=== PATIENT | male | born 1995 | race Two or more races ===

== ENCOUNTER 2017-10-21 05:45 | Emergency (ER) | payer OTHER ==
[~2017-10-21] VITALS: Ht 170.2 cm; Wt 66.7 kg
[2017-10-21] MEDS ORDERED: CELECOXIB100 MG PO (08:15)
[2017-10-21] MEDS ORDERED: LORATADINE10 MG PO (08:15)
[2017-10-21] MEDS ORDERED: AMOX-CLAV 875-1 EACH PO (08:15)
== END 2017-10-21 08:51 | disposition home or self-care (01) ==
LOC: ER 05:45
DX: S02.2XXA Fracture of nasal bones, initial encounter for closed fracture (principal); S90.01XA Contusion of right ankle, initial encounter; S10.83XA Contusion of other specified part of neck, initial encounter; V49.9XXA Car occupant (driver) (passenger) injured in unspecified traffic accident, initial encounter; Y93.89 Activity, other specified; Y92.488 Other paved roadways as the place of occurrence of the external cause; Y99.8 Other external cause status